=== PATIENT | female | born 1945 | race Caucasian/White ===

== ENCOUNTER → 2016-05-27 | Outpatient (CLI) | payer MEDICARE, OTHER ==
[~2016-05-27] MED LIST: CALC-342 PO; CHOL100027 PO; CRS10 PO; CYAN10005 PO; DMD20 PO; EPGI40M SC; ESCI10TA17 PO; GLGKIT INJ; LEVO75TA PO; METO1TAB69 PO; MULT-506 PO; MUPI1CRE TOP; NTRGSL/4 SL; NVLGI SQ; OMEP40CA41 PO; OXYC1TAB3 PO; PROB1CAP41 PO; RIVA1TAB4 PO; TOPI50TA16 PO; TRAM-10 PO; XNX25 PO; [UNRECOGNIZED DRUG - CODE] OPB
[2016-05-27 09:46] LABS: CALCIUM 9.5 mg/dl (8.5-10.1)
[2016-05-27 09:47] LABS: ESTIMATED AVERAGE GLUCOSE 177 mg/dl; HA1C FLAG Normal (Normal)
[2016-05-27 10:00] LABS: THYROID STIMULATING HORMONE 1.21 uIu/ml (0.300-4.500)
--- NOTE | 2016-06-04 05:38 | CODING QUERY MEDICAL NECESSITY ---
SUPPORTING DIAGNOSIS NEEDED A supporting diagnosis is required for the test/procedure performed on this patient in order for us to be reimbursed by the patient's insurance. Please provide a supporting diagnosis for the following test/procedure listed below next to the test name along with your signature. *If there is no additional diagnosis for this patient that would support the following test/procedure please document that below next to the test/procedure. Test(s)/Procedure(s) that require a supporting diagnosis: DOS 05/27 * Hba1c DIAGNOSIS: * TSH DIAGNOSIS: Provider Signature: Date: Thank you Morena Leiva Health Information Management Once completed, please kindly fax back to [phone] For questions please call [phone]
== END | disposition home or self-care (01) ==
LOC: C.LAB1850 07:37
PROVIDERS: ATTEND Family Medicine
DX: D63.8 Anemia in other chronic diseases classified elsewhere (principal); N18.4 Chronic kidney disease, stage 4 (severe); E10.9 Type 1 diabetes mellitus without complications; E06.3 Autoimmune thyroiditis

== ENCOUNTER → 2016-08-30 | Outpatient (CLI) | payer MEDICARE ==
[~2016-08-30] MED LIST changes: +METO100T44 PO; -METO1TAB69 PO
== END ==
LOC: C.RDSM 13:45
PROVIDERS: ATTEND Physical Medicine & Rehabilitation Sports Medicine
DX: M25.512 Pain in left shoulder (principal)

== ENCOUNTER → 2016-09-06 | Outpatient (CLI) | payer MEDICARE ==
[~2016-09-06] MED LIST changes: -METO100T44 PO; +METO1TAB69 PO
[2016-09-06 09:37] LABS: BASO % 0.5 %; BASO ABS # 0.03 K/uL (0-0.2); COMPLETE YES; HEMATOCRIT 34.1 % (37-47); LYMPH % 27.7 %; LYMPH ABS # 1.66 K/uL (1.2-3.4); MEAN CELL VOLUME 93.7 fL (80-100); MEAN CORPUSCULAR HEMOGLOBIN 29.4 pg (25-34); MEAN CORPUSCULAR HGB CONC 31.4 g/dl (32-36); MEAN PLATELET VOLUME 11.8 fL (7.4-10.4); MONO % 7.3 %; NEUT % 59.5 %; PLATELET COUNT 217 K/uL (130-400); RED BLOOD COUNT 3.64 M/uL (4.2-5.4)
[2016-09-06 09:50] LABS: ALT/SGPT 18 U/L (12-78); AST/SGOT 18 U/L (15-37); BLOOD UREA NITROGEN 44 mg/dl (7-18); BUN/CREATININE RATIO 16.9 (10-20); CALCIUM 10.4 mg/dl (8.5-10.1); CARBON DIOXIDE 32 mmol/L (21-32); CHLORIDE 104 mmol/L (98-107); CHOLESTEROL 124 mg/dl (0-200); GLUCOSE 99 mg/dl (70-99); POTASSIUM 4.1 mmol/L (3.5-5.1); SODIUM 141 mmol/L (136-145); TRIGLYCERIDES 64 mg/dl (0-150); VERY LOW DENSITY LIPOPROT CALC 13 mg/dl
[2016-09-06 09:53] LABS: CHOLESTEROL/HDL RATIO 2.4; HDL CHOLESTEROL 52 mg/dl; LDL CHOLESTEROL CALCULATED 59 mg/dl; PHOSPHORUS 3.6 mg/dl (2.5-4.9)
[2016-09-06 11:41] LABS: ESTIMATED AVERAGE GLUCOSE 197 mg/dl; HA1C FLAG Normal (Normal)
[2016-09-06 12:08] LABS: URINE APPEARANCE CLOUDY (CLEAR); URINE BILIRUBIN NEG (NEG); URINE COLOR YELLOW; URINE NITRITE NEG (NEG); URINE SPECIFIC GRAVITY 1.017 (1.000-1.030); UROBILINOGEN NEG (NEG)
[2016-09-06 12:21] LABS: MANUAL MICROSCOPIC REQUIRED? NO; REVIEW REQ? NO
[2016-09-06 12:43] LABS: RATIO 15.4 mcg/mg (0-30.0)
== END | disposition home or self-care (01) ==
LOC: C.LAB1850 07:23
PROVIDERS: ATTEND Internal Medicine Endocrinology, Diabetes & Metabolism
DX: E78.5 Hyperlipidemia, unspecified (principal); E21.2 Other hyperparathyroidism; M85.80 Other specified disorders of bone density and structure, unspecified site; D63.8 Anemia in other chronic diseases classified elsewhere; N18.4 Chronic kidney disease, stage 4 (severe); E10.22 Type 1 diabetes mellitus with diabetic chronic kidney disease

== ENCOUNTER → 2016-09-17 | Outpatient (CLI) | payer MEDICARE ==
--- NOTE | 2016-09-17 08:24 | DIAGNOSTIC IMAGING REPORT ---
THYROID ULTRASOUND HISTORY: Thyroid nodules E04.2 Multiple thyroid nodules COMPARISON: 10/03/2015 FINDINGS: Right lobe: Maximum linear dimension 5.3 cm. Echogenic nodularity of the right thyroid is essentially unchanged given differences in scan technique. Maximum dimension is 1.5 cm. Cystic density lower pole right thyroid is unchanged at 1.9 cm maximum linear dimension. Left lobe: Uniform in appearance with a maximum dimension 2.2 cm. Isthmus: No nodules. IMPRESSION: 1. Asymmetric thyroid with stable nodularity/cystic change of the right thyroid lobe. 2. The right thyroid lobe remains moderately larger as compared to the left with this differential unchanged from the prior study 3. No evidence for new interval or progressive nodular process. Electronically signed by: Tristan Hutchinson M.D. 09/17/2016 8:22 AM Dictated Date/Time: 09/17/2016 8:18 AM
== END | disposition home or self-care (01) ==
LOC: C.ULTR 07:37
PROVIDERS: ATTEND Internal Medicine Endocrinology, Diabetes & Metabolism
DX: E04.2 Nontoxic multinodular goiter (principal)

== ENCOUNTER → 2016-11-06 | Outpatient (CLI) | payer MEDICARE ==
--- NOTE | 2016-11-06 12:06 | DIAGNOSTIC IMAGING REPORT ---
LEFT LOWER EXTREMITY VENOUS DOPPLER HISTORY: Left leg SWELLING/PAIN, R/O DVT COMPARISON STUDY: None. FINDINGS: There is normal compressibility, flow, and augmentation within the left lower extremity deep venous system. A 7.3 x 4.9 x 1.4 cm slightly complex popliteal cyst. IMPRESSION: No DVT within the left lower extremity. Slightly complex left popliteal cyst. Electronically signed by: Rowdy Hernandez M.D. 11/06/2016 12:04 PM Dictated Date/Time: 11/06/2016 12:03 PM
== END | disposition home or self-care (01) ==
LOC: C.ULTRBC 10:55
PROVIDERS: ATTEND Dermatology
DX: M79.662 Pain in left lower leg (principal); M71.22 Synovial cyst of popliteal space [Baker], left knee

== ENCOUNTER → 2016-11-29 | Outpatient (CLI) | payer MEDICARE ==
[2016-11-29 09:59] LABS: HEMATOCRIT 37.8 % (37-47); MEAN CELL VOLUME 97.4 fL (80-100); MEAN CORPUSCULAR HEMOGLOBIN 31.2 pg (25-34); MEAN PLATELET VOLUME 10.8 fL (7.4-10.4); PLATELET COUNT 231 K/uL (130-400); RED BLOOD COUNT 3.88 M/uL (4.2-5.4); WHITE BLOOD COUNT 6.46 K/uL (4.8-10.8)
[2016-11-29 10:26] LABS: BLOOD UREA NITROGEN 33 mg/dl (7-18); CARBON DIOXIDE 30 mmol/L (21-32); CHLORIDE 103 mmol/L (98-107); POTASSIUM 4.2 mmol/L (3.5-5.1); SODIUM 139 mmol/L (136-145)
== END | disposition home or self-care (01) ==
LOC: C.LAB1850 09:01
PROVIDERS: ATTEND Physical Medicine & Rehabilitation Sports Medicine
DX: Z01.812 Encounter for preprocedural laboratory examination (principal); M65.30 Trigger finger, unspecified finger; G56.02 Carpal tunnel syndrome, left upper limb

== ENCOUNTER → 2016-12-02 | Outpatient (CLI) | payer MEDICARE ==
--- NOTE | 2016-12-02 14:23 | DIAGNOSTIC IMAGING REPORT ---
L KNEE 1 OR 2 VIEWS ROUTINE CLINICAL HISTORY: 71 years-old Female presenting with M25.562 Chronic pain of left kneeM79.662 Pain and swelling of leg. TECHNIQUE: Frontal and lateral views of the left knee were obtained. COMPARISON: 11/16/2009. FINDINGS: No acute fracture or subluxation. No gross evidence of a knee joint effusion. No degenerative change. Atherosclerosis noted. Suggestion of diffuse subcutaneous edema in the visualized portion of the left leg. IMPRESSION: No significant osseous abnormality. Electronically signed by: Murray Bowman M.D. 12/02/2016 2:22 PM Dictated Date/Time: 12/02/2016 2:20 PM
== END | disposition home or self-care (01) ==
LOC: C.RAD 13:57
PROVIDERS: ATTEND Neuromusculoskeletal Medicine & OMM
DX: M25.562 Pain in left knee (principal); M79.662 Pain in left lower leg; M79.89 Other specified soft tissue disorders

== ENCOUNTER → 2016-12-09 | Outpatient (CLI) | payer MEDICARE ==
[2016-12-09 10:58] LABS: BASO % 0.3 %; BASO ABS # 0.02 K/uL (0-0.2); COMPLETE YES; HEMATOCRIT 39.8 % (37-47); IG% 0.2 %; MEAN CELL VOLUME 98.5 fL (80-100); MEAN CORPUSCULAR HEMOGLOBIN 30.4 pg (25-34); MEAN CORPUSCULAR HGB CONC 30.9 g/dl (32-36); MEAN PLATELET VOLUME 11.6 fL (7.4-10.4); MONO % 7.4 %; NEUT % 68.1 %; PLATELET COUNT 212 K/uL (130-400); RED BLOOD COUNT 4.04 M/uL (4.2-5.4); WHITE BLOOD COUNT 5.78 K/uL (4.8-10.8)
[2016-12-09 11:25] LABS: BLOOD UREA NITROGEN 41 mg/dl (7-18); BUN/CREATININE RATIO 15.1 (10-20); CALCIUM 9.3 mg/dl (8.5-10.1); CARBON DIOXIDE 32 mmol/L (21-32); CHLORIDE 99 mmol/L (98-107); GLUCOSE 300 mg/dl (70-99); POTASSIUM 4.4 mmol/L (3.5-5.1); SODIUM 137 mmol/L (136-145)
[2016-12-09 11:26] LABS: PHOSPHORUS 3.6 mg/dl (2.5-4.9)
[2016-12-09 11:41] LABS: RATIO 18.3 mcg/mg (0-30.0)
== END | disposition home or self-care (01) ==
LOC: C.LAB1850 09:13
PROVIDERS: ATTEND Internal Medicine
DX: M85.80 Other specified disorders of bone density and structure, unspecified site (principal); E10.9 Type 1 diabetes mellitus without complications; E78.5 Hyperlipidemia, unspecified

== ENCOUNTER → 2016-12-12 | Day surgery (SDC) | payer MEDICARE ==
[2016-11-26 07:31] VITALS: Ht 172.1 cm; Wt 72.7 kg
--- NOTE | 2016-12-10 12:12 | History and Physical ---
History & Physical Date & Time of Service: Dec 10, 2016 at 11:43 Chief Complaint: Left Long Finger Trigger Digit, Left Carpal Tunnel Primary Care Physician: Kareem Almaguer III, CRNP History of Present Illness Source: patient Patient is a 71-year-old female who certainly for preoperative history and physical. She scheduled to have the left open carpal tunnel release and left long finger trigger digit release with Dr. Smith at [facility] On December 12, 2016. She has been having ongoing left long finger trigger digit for the last 18 months or so. She previously had a corticosteroid injection and it but it continues to cause her pain. She does occasionally get locking and it although it has not been locking clinically in our office. There is a palpable nodule. Back in August she also complained of some weakness and occasional numbness and tingling in her left hand. She is left-hand dominant. She states that her symptoms are present during the day but worse at night. She also has some pain at the separate thumb. An EMG and nerve conduction study was completed which shows severe left carpal tunnel syndrome with axonal loss. Due to her progressively worsening symptoms and EMG findings surgical intervention was recommended. Treatment options with regards to her carpal tunnel were discussed which included injections, bracing, therapy , and surgery. She wished to proceed with surgery. During that procedure she would also like to get her trigger digit released as well to continues to be painful. Past Medical/Surgical History 1. History of heart attack in October 2000 2. Atherosclerotic cardiovascular disease 3. Dyslipidemia 4. Insulin-dependent diabetes 5. Factor V Leiden mutation 6. Hypothyroidism 7. Stage IV chronic kidney disease with anemia of chronic disease 8. Hypertension 9. Carpal tunnel syndrome left hand 10. Long finger trigger digit left hand 11. Sleep apnea 12. Anxiety 13. History of blood clots 14. Osteoarthritis 15. History of sciatica 16. GERD 17. 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 Past surgical history: 1.Amputation of 6 toes total beginning in 2013 2. Cataract surgery 3. Laser treatment for her eyes 4. Multiple Skin lesions excised 5. Left hammertoe correction 6. Hemorrhoidectomy 7. Hysterectomy 8. ORIF of right knee 9. Parathyroidectomy 10. Right knee arthroscopy 11. History of right groin Starclose filter 12. Tonsillectomy Family History Family history: Significant for stroke, diabetes, and cancer. Social History Smoking Status: Former Smoker (Quit in June 2015. Smoked one pack per day for 45 years) Alcohol Use: none Drug Use: none Marital Status: Housing status: lives with significant other Immunizations History of Influenza Vaccine: Yes Influenza Vaccine Date: Dec 29, 2006 History of Tetanus Vaccine?: Yes Tetanus Immunization Date: Jun 29, 2007 History of Pneumococcal: Yes Pneumococcal Date: Jun 29, 2002 History of Hepatitis B Vaccine: No Multi-Drug Resistant Organisms History of MDRO: No Allergies Coded Allergies: Acetaminophen (Verified Allergy, Unknown, PROTECT HER KIDNEYS, 11/26/16) NSAIDs (Unverified Allergy, Unknown, AVOID TO PROTECT KIDNEYS, 11/26/16) Atorvastatin (Verified Adverse Reaction, Intermediate, MUSCLE PAIN, ) Corticosteroids (Verified Adverse Reaction, Intermediate, DUE TO INCREASED BLOOD SUGAR, 11/26/16) Simvastatin (Verified Adverse Reaction, Intermediate, MUSCLE PAIN, 11/26/16 ) Home Medications Scheduled Alprazolam (Xanax *), 0.25 MG PO BID Calcium Carbonate-Vitamin D (Calcium 600+D), 1 TAB PO QAM Cholecalciferol (Vitamin D 1000 Unit), 1,000 INTER.UNIT PO QAM Cyanocobalamin (Vitamin B-12), 1,000 MCG PO QAM Escitalopram (Lexapro), 10 MG PO QPM Glucagon (Glucagon Emergency Kit), 1 DOSE INJ PRN Insulin Aspart (Novolog), 1 SQ UD Levothyroxine Sodium (Synthroid), 75 MCG PO UD Loteprednol Etabonate 0.2% Oph (Alrex 0.2% OPH), 1 DROP OPB BID Metoprolol Succ (Toprol Xl) (Toprol-Xl ), 100 MG PO QAM Multivitamin (Multivitamin), 1 TAB PO QAM Mupirocin Calcium (Topical) (Mupirocin), 1 DOSE TOP HS Nitroglycerin (Nitrostat), 1 TAB SL PRN Omeprazole (Prilosec), 40 MG PO QAM Probiotic Product (Probiotic Daily), 1 CAP PO QAM Rivaroxaban (Xarelto), 20 MG PO QAM Rosuvastatin Calcium (Crestor *), 10 MG PO QPM Topiramate (Topamax), 50 MG PO BID Scheduled PRN Epoetin Jose Miguel (Procrit), 40,000 UNIT SC WEEKLY PRN for PRN Torsemide (Torsemide), 20 MG PO BID PRN for PRN Tramadol (Ultram), 50 MG PO Q6H PRN for Pain Review of Systems Constitutional: No fever, No chills, No sweats, No weight loss Eyes: No worsening of vision, No redness ENT: No hearing loss, No unusual epistaxis, No nasal symptoms, No sore throat, No tinnitus Respiratory: No cough, No sputum, No wheezing, No shortness of breath, No dyspnea on exertion Cardiovascular: No chest pain, No orthopnea, No edema, No claudication, No palpitations Abdomen: No pain, No nausea, No vomiting, No diarrhea, No constipation Musculoskeletal: + joint pain (Left thumb, left hand), No swelling Genitourinary - Female: No urinary frequency, No urinary urgency, No urinary incontinence, No urinary retention Neurologic: + numbness/tingling (Left hand), No memory loss, No balance problems Psychiatric: + anxiety, No depression symptoms, No substance abuse Endocrine: No fatigue Hematologic / Lymphatic: + abnormal bleeding/bruising, + clotting problems Integumentary: + new/changing skin lesions (Recent squamous cell carcinoma excised from left leg. Incision healing nicely), No rash, No itch Physical Exam General Appearance: WD/WN, no apparent distress Head: normocephalic, atraumatic Eyes: normal inspection, PERRL, EOMI ENT: normal ENT inspection, hearing grossly normal, pharynx normal Neck: supple, thyroid normal, no carotid bruits, trachea midline Respiratory/Chest: chest non-tender, lungs clear, normal breath sounds, no respiratory distress, no accessory muscle use Cardiovascular: regular rate, rhythm, no edema, normal peripheral pulses, + systolic murmur ([place] best at right sternal border) Abdomen/GI: normal bowel sounds, non tender, soft Extremities/Musculoskelatal: normal range of motion, + pertinent finding (Exam of the left hand reveals tenderness at the CMC joint with a positive grind test. She has mild thumb abduction contracture. There is no tenderness at the MP joint of thumb. She is tenderness over most of her long finger and over the MP joint volarly of all of her fingers most notably the long finger. She has full range of motion of her left hand and fingers. There is no active triggering, a palpable nodule is palpated with some mild clicking. Sensation diminished in all of her fingers and she reports a negative Tinel's and Phalen' s maneuver.) Neurologic/Psych: alert, normal mood/affect, normal reflexes, oriented x 3 Skin: normal color, warm/dry, no rash Diagnostics Diagnostic Radiology X-rays of left hand were taken 3 views and show no evidence of acute bony abnormality fracture dislocation. It does appear to have CMC joint arthritis of her left thumb. Impression Assessment and Plan Assessment: 1. Left carpal tunnel syndrome 2. Left long finger trigger digit 3. Left CMC joint arthritis Plan: Patient is scheduled to undergo an open left carpal tunnel release and left long trigger finger release with Dr. Smith at the [facility] on December 12, 2016. Risks and complications were discussed and include but not limited to infection, bleeding, pain, scarring, nerve and blood vessel damage, wound problems, weakness, stiffness, incomplete relief of symptoms, sensitivity to incision, persistent numbness and tingling, recurrence , blood clots, embolisms, heart attack, stroke, and . Informed consent was obtained. She will have preoperative medical clearance from her family physician Dr. Maikel Barkley. She was instructed to use the CHG cloths appropriately preoperatively. She will follow up in physical therapy 4-5 days after surgery. She will also follow-up with Dr. Smith postoperatively about 10-14 days postoperatively for suture removal. She is given a prescription for oxycodone IR 30 tablets 1-2 tabs every 4-6 hours as needed for pain. The [place] PDMP was checked with no issues identified. She will have preadmission testing and was she will obtain preoperative CBC and BMP. Her EKG will be obtained from her family physician. Her family physician recommended that she take Lovenox 60 mg on Friday and Friday prior to surgery. She will take nothing the day of surgery on December 12, 2016 and will resume her Xarelto appropriately postoperatively. All questions were answered today and she does call with any further problems, questions, or concerns.
[~2016-12-12] VITALS: Ht 172.1 cm; Wt 72.7 kg
[~2016-12-12] MED LIST changes: +ATROPINE SULFATE 0.1 MG/ML 5ML SYR IV PRN; +BUPIVACAINE/EPINEPHRINE 0.25% 1:200,000 30 ML VIAL ONE; +BUPIVACAINE/EPINEPHRINE 0.5% MPF 1:200,000 10 ML VIAL ONE; +CEFAZOLIN 2000 MG/60 ML D5W IV SCH; +EpHEDrine SULFATE INJ 50 MG/ML AMP IV PRN; +FENTANYL CITRATE INJ 50 MCG/1 ML 2 ML VIAL IV PRN; +FENTANYL CITRATE INJ 50 MCG/1 ML 2 ML VIAL ONE; +LACTATED RINGER'S 1000ML 1,000 ML IV SCH; +LIDOCAINE HCL 2% 2 ML VIAL (20MG/ML) ONE; +LIDOCAINE/EPINEPHRINE 1% INJ 50 ML VIAL ONE; +MIDAZOLAM HCL 1 MG/ML 2ML VIAL ONE; +ONDANSETRON INJ 2 MG/ML 2 ML VIAL IV PRN; +OXYCODONE HCL IR 5 MG TAB (IMMEDIATE RELEASE) PO PRN; +PROPOFOL IV EMULSION 10 MG/ML 20 ML VIAL IV ONE; +SODIUM CHLORIDE 0.9% 1000ML 1,000 ML IV SCH
--- NOTE | 2016-12-12 08:12 | History & Physical Bridge Note ---
H&P Re-Evaluation Bridge Note: I have examined the patient, reviewed the History & Physical and in the interval since the performance of the History & Physical I have noted the following changes of clinical significance: No changes noted
[2016-12-12 09:10] VITALS: TEMP 36.6
--- NOTE | 2016-12-12 09:11 | Anesthesia Progress Nt - [facility] ---
Anesthesia Post Op Note Date & Time Dec 12, 2016 at 09:11 Vital Signs Pain Intensity: 0 Vital Signs Past 12 Hours Date Time Temp Pulse Resp B/P (MAP) Pulse Ox O2 Delivery O2 Flow Rate FiO2 12/12/16 07:40 36.5 54 16 125/73 (90) 95 Room Air Notes Mental Status: alert / awake / arousable, participated in evaluation Pt Amnestic to Procedure: Yes Nausea / Vomiting: adequately controlled Pain: adequately controlled Airway Patency, RR, SpO2: stable & adequate BP & HR: stable & adequate Hydration State: stable & adequate Anesthetic Complications: no major complications apparent
--- NOTE | 2016-12-12 09:18 | Discharge Instructions-SurgCtr ---
Discharge Instructions Date of Service Dec 12, 2016. Visit Reason for Visit: Left Long Finger Trigger Digit, Left Carpal Tunnel Discharge Discharge Diagnosis / Problem: left long finger trigger digit, carpal tunnel syndrome left hand Discharge Goals Goal(s): Decrease discomfort, Improve function, Increase independence Medications Stopped Medications Name(s): Xarelto, last dose 12/09/16 Restart Stopped Medication(s): Resume Xarelto tomorrow at your regular dose Activity Recommendations Activity Limitations: per Instructions/Follow-up section Weightbearing Status: Left non-weightbearing (hand) Anesthesia . Post Anesthesia Instructions: If you have had General Anesthesia or IV Sedation: * Do not drive today. * Resume driving when surgeon permits. * Do not make important decisions or sign legal documents today. * Call surgeon for: 1. Temperature elevations greater than 101 degrees F. 2. Uncontrollable pain. 3. Excessive bleeding. 4. Persistent nausea and vomiting. 5. Medication intolerance (nausea, vomiting or rash). * For nausea and vomiting use only clear liquids such as: tea, soda, bouillon until nausea subsides, then gradually increase diet as tolerated. * If you have any concerns or questions, call your surgeon's office. If physician is unavailable and it is an emergency, call 911 or go to the nearest emergency room. . Instructions / Follow-Up Instructions / Follow-Up The following are instructions to follow after minor hand surgery. ACTIVITY RECOMMENDATIONS: * Minimize activity until your first visit after surgery. * No excessive walking, jogging, sports or laboring. * Return to activity is individualized. Most patients are able to return to everyday activities within 2 weeks. * Return to sports or intensive labor usually occurs at 1-2 months. * DRIVING: Driving may be resumed when you feel you have adequate pain control and use of the hand. * BATHING: You may shower or sponge-bathe immediately after surgery. The dressing will need to be covered with a plastic bag or plastic wrap until the dressing is changed on the fourth or fifth day after surgery. Once the dressing has been changed on the fourth or fifth day after surgery, you may shower and get the incision wet. * Wash with regular soap and water. * Do not bathe (submerge the incision), soak, swim or use a hot tub until the incision is completely healed over with normal skin and the doctor has given the OK to proceed. * There is no need to apply any ointments, powders or salves to your incision. * Do not apply alcohol or hydrogen peroxide directly to the incision. Diluted peroxide (50:50 mixture with sterile saline) may be used to clean dried blood from around the incision area. WORK/SCHOOL: * You may return to sedentary work or school when you are feeling comfortable. This is usually 3-7 days after surgery. * Expect increased discomfort with increased activity. Continue to elevate and ice the hand as much as possible. DIET: * Resume previous diet. MEDICATIONS: * You will have a prescription for pain medication and an anti-inflammatory medication after surgery. Use the pain pills for severe pain and the anti-inflammatory for less severe pain. * Once the pain pills have run out, try to use the anti-inflammatory. If this is not effective then contact the office for assistance. * The pain medication may cause nausea, constipation and sleepiness. You should see how they affect you before driving or similar activity. * The anti-inflammatory may cause stomach upset and bleeding. If this occurs, let your doctor know immediately . * Some patients may need blood clot prevention. This can be done with either a pill or a simple shot. Your doctor will advise you on when to begin these medications and how to take them. * Do not take aspirin or other anti-inflammatory products (i.e. Advil or Aleve ) if taking blood thinner medication. * Take a stool softener like Colace or a stimulant like Senokot to prevent constipation. SPECIAL CARE INSTRUCTIONS: ICE: * Do not apply ice directly to the skin. * Use a thin dressing or stockinet between the skin and ice bag. The dressing in place after surgery will suffice. * Apply ice for 20-30 minutes and repeat every 2-4 hours. This is especially important for the first 3-7 days after surgery. * Once the pain improves, use ice as needed. ELEVATION: * Keep your hand elevated at or above the level of your heart as much as possible. * Expect some increased discomfort and swelling if you allow your hand to hang down for any length of time. DRESSING: * Your dressing will be changed 4-5 days after surgery by the physical therapist or physician's equity sales assistant. Leave your dressing intact until this time. * You may then change your dressing daily with clean dry gauze or Band-aids and a soft wrap or stockinet. * Always wash your hands prior to touching the incision area. * Once the stitches are removed, you may leave the wound open to air or cover with a thin bandage. * There is no need to apply any ointments, powders or salves to your incision. * Expect some bloody drainage for the first few days after surgery. * Leave the tape strips in place (if present) for 5-7 days. * The initial dressing after surgery may become soaked with blood or fluid which is normal. You may reinforce your dressing with clean, dry gauze as needed. BRACE: * Bracing is generally not needed after routine hand surgery. THERAPY: * Physical therapy may be prescribed after your surgery. * For carpal tunnel and trigger digit surgery you may begin moving your fingers and wrist immediately after surgery as tolerated. * Be careful to not overuse. * Once the sutures are removed, further range of motion exercises can be performed. * Hand incisions may be very sensitive for a few months after surgery so avoid excessive pressure on the incision. If necessary, use a padded weightlifters' glove. * You may massage the incision with skin cream to make it less sensitive and reduce scarring. * Hand strength usually returns with normal use. * If needed, squeezing a soft sponge or Play-dough may help. * Your doctor will recommend physical therapy if necessary. PROBLEMS/QUESTIONS: * If you have any problems such as severe pain, numbness, tingling or high fevers or if you have any questions, please contact the office at [phone]. * It is not uncommon to have some numbness and tingling after the surgery especially if you have had a nerve block done. This should gradually improve over the first 1- 2 days. If this persists longer or worsens then contact the office. FOLLOW UP VISIT: * If not already scheduled, please call the office at to schedule follow-up appointments for approximately 10 days, 6 weeks and 3 months after surgery. * You will start physical therapy on 12/16/16 at 10:00 a.m. * You have a follow up appointment with Dr. Smith on 12/25/16 at 12:00 p.m. Diet Recommendations Home Diet: no limitations, resume previous diet Procedures Procedures Performed: Left Long Finger Trigger Release, Left Carpal Tunnel Release Pending Studies Studies pending at discharge: no Medical Emergencies . Who to Call and When: Medical Emergencies: If at any time you feel your situation is an emergency, please call 911 immediately. . Non-Emergent Contact Non-Emergency issues call your: Surgeon Call Non-Emergent contact if: temperature is above 101, your pain is not controlled, your pain is worsening, wound has increased drainage, wound has increased redness, wound has increased pain, you have any medication questions . . "Provider Documentation" section prepared by lAina Bruce. . [place] Drug Monitoring Program Search Results: patient reviewed within database, no issues identified
--- NOTE | 2016-12-12 09:19 | [facility] Post Operative Brief Note ---
Immediate Operative Summary Operative Date Dec 12, 2016. Pre-Operative Diagnosis Left carpal tunnel syndrome Left long finger trigger finger digit Post-Operative Diagnosis Same as pre-op Procedure(s) Performed Left Long Finger Trigger Release, Left Carpal Tunnel Release Surgeon Dr. Sosa Assistant Shift Supervisor Surgeon(s) Michelet MOISE Estimated Blood Loss None Findings as above Specimens None Drains no Anesthesia local with IV sedation Complication(s) None Disposition Recovery Room / PACU
--- NOTE | 2016-12-12 09:21 | [facility] Operative Report ---
Operative Report Operative Date Dec 12, 2016. Pre-Operative Diagnosis Left carpal tunnel syndrome Left long finger trigger finger digit Post-Operative Diagnosis Same as pre-op Procedure(s) Performed Left Long Finger Trigger Release, Left Carpal Tunnel Release Surgeon Dr. Sosa Motor Hotel Manager Surgeon(s) Alina Bruce PA-C Estimated Blood Loss None Findings left long finger trigger digit release, CTS left hand Specimens None Drains None Anesthesia Local with sedation Complication(s) None Disposition Recovery Room / PACU (stable) Indications Patient is a 71 year old female, with complaints of pain in left long finger with occasional locking, paresthesias left hand. Progressively worsening, failed conservative treatment. X-rays negative except for left CMC joint arthritis. Surgical intervention recommended. Risks/complications discussed, informed consent obtained. Description of Procedure Patient was taken to the operating room, given IV Ancef for surgical prophylaxis. Given IV sedation and local injections. Time out performed, prepped and draped in routine sterile fashion. I was present during the entire case, please see Dr. Smith's operative report for further detail. Patient was awakened and taken to the recovery room in stable condition. I attest to the content of the Intraoperative Record and any orders documented therein. Any exceptions are noted below.
[2016-12-12 09:35] VITALS: BP 177/80; PULSE 56; O2SAT 98
--- NOTE | 2016-12-12 11:56 | [facility] Operative Report ---
Operative Report Operative Date Dec 12, 2016. Pre-Operative Diagnosis Left carpal tunnel syndrome Left long finger trigger finger digit Post-Operative Diagnosis Same as pre-op Procedure(s) Performed Left Long Finger Trigger Release, Left Carpal Tunnel Release Surgeon Dr. Sosa Fashion Coordinator Surgeon(s) Alina Bruce PA-C Estimated Blood Loss None Findings Thickening of the A1 dieter. Markedly thickened and deep carpal ligament with an atrophied median nerve Specimens None Drains none Anesthesia local with IV sedation Complication(s) None Disposition Recovery Room / PACU Implants None Indications Patient's a 71-year-old female with a symptomatic left long finger trigger digit and severe carpal tunnel syndrome. She is also a diabetic. Treatment options were discussed and she elected to proceed with operative intervention. Description of Procedure Informed consent was obtained. The patient was identified as Nakia Barkley. She identified the operative site as the left hand carpal tunnel and long finger trigger digit area and I marked these areas separately with my initials a preoperative surgical timeout was performed. Preoperative dose of IV antibiotics was given. She was taken to the operating room positioned supine on the hospital stretcher the left arm was suspended on a hand table. A tourniquet was applied to the left arm the limb was prepped and draped in usual sterile fashion DVT prophylaxis was not indicated intraoperatively. Postoperatively they will be done with early mobility. She will also resume her anticoagulant the morning following surgery. Her oral anticoagulant has been discontinued. She is been on Lovenox injections daily. Her last injection was 24 hours preoperatively. He had an adduction contracture of her thumb and atrophy of the thenar eminence. I could not get her finger to trigger although she did have a palpable nodule the level of the A1 dieter. Percent lidocaine with epinephrine was injected for a carpal tunnel and digital block. The arm was prepped and draped in usual sterile fashion. I made an oblique incision over the long finger of A1 dieter. The incision was about 1-1/2 cm in length and was centralized over the involved digit. Blunt dissection was performed down in the midline until the flexor sheath was identified. The entrance to the dieter system was identified by markedly thickened A1 dieter. I released the fascial tissue proximally in the midline and released the A1 dieter completely. The tendons looked normal there was some inflammation around that area but no cysts. The wound was then irrigated and closed with 4-0 nylon horizontal mattress stitches. Prior to start of the procedure the wound the limb was exsanguinated with the Esmarch and tourniquet inflated to 225 mmHg. A longitudinal incision was made beginning at Gambino's cardinal line and extending just short of the distal transverse wrist crease. Blunt dissection was performed down to subcutaneous tissues until transverse carpal ligament was identified. The fat at the distal extent of the and transverse carpal ligament was identified. A thickened and markedly deep transverse carpal ligament was noted this was carefully released up into the distal forearm fascia under direct visualization. The contents of the carpal canal were normal. The tendons and tenosynovium. There is no mass. A flattening and perhaps atrophying of the median nerve was noted. The wound was irrigated and closed with 4-0 nylon interrupted horizontal mattress stitches. A soft sterile dressing was applied. The was deflated after approximately 20 minutes of inflation. There were no specimens or call locations counts are correct in the case blood loss was minimal. At the conclusion operations both patient's family informed of my findings and postoperative instructions were given. She'll be rehabilitated according to the carpal tunnel and trigger digit protocol. I attest to the content of the Intraoperative Record and any orders documented therein. Any exceptions are noted below.
== END | disposition home or self-care (01) ==
LOC: X.SURG 07:24
PROVIDERS: ATTEND Physical Medicine & Rehabilitation Sports Medicine
DX: M65.332 Trigger finger, left middle finger (principal); G56.02 Carpal tunnel syndrome, left upper limb; I25.10 Atherosclerotic heart disease of native coronary artery without angina pectoris; I12.9 Hypertensive chronic kidney disease with stage 1 through stage 4 chronic kidney disease, or unspecified chronic kidney disease; E10.9 Type 1 diabetes mellitus without complications; D68.51 Activated protein C resistance; E78.5 Hyperlipidemia, unspecified; E03.9 Hypothyroidism, unspecified; N18.4 Chronic kidney disease, stage 4 (severe); Z87.891 Personal history of nicotine dependence; Z79.899 Other long term (current) drug therapy; Z79.4 Long term (current) use of insulin; Z98.49 Cataract extraction status, unspecified eye; Z98.890 Other specified postprocedural states; Z90.710 Acquired absence of both cervix and uterus; Z90.89 Acquired absence of other organs; Z82.3 Family history of stroke; Z83.3 Family history of diabetes mellitus; Z80.9 Family history of malignant neoplasm, unspecified

== ENCOUNTER → 2017-01-27 | Outpatient (CLI) | payer MEDICARE ==
[~2017-01-27] MED LIST changes: -ATROPINE SULFATE 0.1 MG/ML 5ML SYR IV PRN; -BUPIVACAINE/EPINEPHRINE 0.25% 1:200,000 30 ML VIAL ONE; -BUPIVACAINE/EPINEPHRINE 0.5% MPF 1:200,000 10 ML VIAL ONE; -CEFAZOLIN 2000 MG/60 ML D5W IV SCH; -EpHEDrine SULFATE INJ 50 MG/ML AMP IV PRN; -FENTANYL CITRATE INJ 50 MCG/1 ML 2 ML VIAL IV PRN; -FENTANYL CITRATE INJ 50 MCG/1 ML 2 ML VIAL ONE; -LACTATED RINGER'S 1000ML 1,000 ML IV SCH; -LIDOCAINE HCL 2% 2 ML VIAL (20MG/ML) ONE; -LIDOCAINE/EPINEPHRINE 1% INJ 50 ML VIAL ONE; +METO100T44 PO; -METO1TAB69 PO; -MIDAZOLAM HCL 1 MG/ML 2ML VIAL ONE; -ONDANSETRON INJ 2 MG/ML 2 ML VIAL IV PRN; -OXYCODONE HCL IR 5 MG TAB (IMMEDIATE RELEASE) PO PRN; -PROPOFOL IV EMULSION 10 MG/ML 20 ML VIAL IV ONE; -SODIUM CHLORIDE 0.9% 1000ML 1,000 ML IV SCH
[2017-01-27 10:37] LABS: HEMATOCRIT 36.6 % (37-47)
[2017-01-27 11:04] LABS: BLOOD UREA NITROGEN 23 mg/dl (7-18); BUN/CREATININE RATIO 9.8 (10-20); CALCIUM 9.4 mg/dl (8.5-10.1); CARBON DIOXIDE 26 mmol/L (21-32); CHLORIDE 101 mmol/L (98-107); CREATININE 2.39 mg/dl (0.60-1.20); GLUCOSE 234 mg/dl (70-99); POTASSIUM 4.1 mmol/L (3.5-5.1); SODIUM 136 mmol/L (136-145)
[2017-01-27 16:20] LABS: MANUAL MICROSCOPIC REQUIRED? YES; URINE APPEARANCE CLEAR (CLEAR); URINE BILIRUBIN NEG (NEG); URINE COLOR YELLOW; URINE NITRITE NEG (NEG); URINE PH 6.5 (4.5-7.5); UROBILINOGEN NEG (NEG)
[2017-01-27 16:38] LABS: REVIEW REQ? NO
[2017-01-27 16:58] LABS: URINE WBC >30 /hpf (0-5)
[2017-01-27 16:59] LABS: URINE BACTERIA 1+ (NEG); ZZUR CULT IF INDIC CLEAN CATCH YES
== END | disposition home or self-care (01) ==
LOC: C.LAB1850 10:02
PROVIDERS: ATTEND Internal Medicine
DX: N18.4 Chronic kidney disease, stage 4 (severe) (principal); D63.8 Anemia in other chronic diseases classified elsewhere

== ENCOUNTER → 2017-02-11 | Outpatient (CLI) | payer OTHER ==
--- NOTE | 2017-02-12 07:35 | MAMMOGRAPHY REPORT ---
BILATERAL DIGITAL SCREENING MAMMOGRAM WITH CAD: 02/11/2017 CLINICAL HISTORY: Routine screening. Patient has no complaints. TECHNIQUE: Bilateral CC and MLO views were obtained. Current study was also evaluated with a Compute r Aided Detection (CAD) system. COMPARISON: Comparison is made to exams dated: 02/06/2016 mammogram, 02/01/2015 mammogram, 12/15/2013 mammogram, 12/09/2012 mammogram, 12/03/2011 mammogram, and 11/22/2010 mammogram - [facility]. BREAST COMPOSITION: The tissue of both breasts is heterogeneously dense, which may obscure small mas ses. FINDINGS: There are mild vascular calcifications in the breasts. Benign rim calcification in the lef t breast. No suspicious mass, architectural distortion or cluster of suspicious microcalcifications is seen. IMPRESSION: ACR BI-RADS CATEGORY 1: NEGATIVE There is no mammographic evidence of malignancy. A 1 year screening mammogram is recommended. The pa tient will receive written notification of the results. Approximately 10% of breast cancers are not detected with mammography. A negative mammographic report should not delay biopsy if a clinically suggestive mass is present. Liat Ordaz M.D. ay/:02/11/2017 15:56:54 Ladle Builder: Lesly CERVANTES,R, M, [facility] letter sent: Normal 1/2 BI-RADS Code: ACR BI-RADS Category 1: Negative
== END | disposition home or self-care (01) ==
LOC: C.MAMM 07:46
PROVIDERS: ATTEND Neuromusculoskeletal Medicine & OMM
DX: Z12.31 Encounter for screening mammogram for malignant neoplasm of breast (principal)

== ENCOUNTER → 2017-03-19 | Outpatient (CLI) | payer MEDICARE ==
[2017-03-19 10:09] LABS: HEMATOCRIT 36.9 % (37-47); HEMOGLOBIN 11.3 g/dL (12.0-16.0)
[2017-03-19 10:16] LABS: CALCIUM 10.1 mg/dl (8.5-10.1)
== END | disposition home or self-care (01) ==
LOC: C.LAB1850 09:05
PROVIDERS: ATTEND Internal Medicine Endocrinology, Diabetes & Metabolism
DX: N18.4 Chronic kidney disease, stage 4 (severe) (principal); D63.8 Anemia in other chronic diseases classified elsewhere; E03.9 Hypothyroidism, unspecified; E78.5 Hyperlipidemia, unspecified; E21.2 Other hyperparathyroidism; M85.80 Other specified disorders of bone density and structure, unspecified site; E10.65 Type 1 diabetes mellitus with hyperglycemia

== ENCOUNTER → 2017-03-20 | Outpatient (CLI) | payer MEDICARE ==
[2017-03-20 10:04] LABS: BASO ABS # 0.06 K/uL (0-0.2); EOS % 4.6 %; EOS ABS # 0.29 K/uL (0-0.5); HEMATOCRIT 34.8 % (37-47); HEMOGLOBIN 10.7 g/dL (12.0-16.0); IG# 0.01 K/uL (0.00-0.02); LYMPH % 19.9 %; LYMPH ABS # 1.25 K/uL (1.2-3.4); MEAN CELL VOLUME 95.9 fL (80-100); MEAN CORPUSCULAR HEMOGLOBIN 29.5 pg (25-34); MEAN CORPUSCULAR HGB CONC 30.7 g/dl (32-36); MONO % 6.5 %; MONO ABS # 0.41 K/uL (0.11-0.59); NEUT % 67.8 %; NEUT ABS # 4.25 K/uL (1.4-6.5); PLATELET COUNT 234 K/uL (130-400); RED CELL DISTRIBUTION WIDTH CV 16.5 % (11.5-14.5); RED CELL DISTRIBUTION WIDTH SD 58.2 fL (36.4-46.3); WHITE BLOOD COUNT 6.27 K/uL (4.8-10.8)
== END | disposition home or self-care (01) ==
LOC: C.LAB1850 09:29
PROVIDERS: ATTEND Nurse Practitioner Adult Health
DX: R05 Cough (principal)

== ENCOUNTER → 2017-03-20 | Outpatient (CLI) | payer MEDICARE ==
--- NOTE | 2017-03-20 10:34 | DIAGNOSTIC IMAGING REPORT ---
CHEST 2 VIEWS ROUTINE CLINICAL HISTORY: [id number] COMPARISON STUDY: 08/25/2015, June 2014 FINDINGS: The cardiac and mediastinal contours are normal. There is no evidence of focal pulmonary consolidation. There is no evidence of failure. No pleural effusions are visualized.[ Indistinctness of the lower left cardiac border, is likely secondary to a fat pad. This remains unchanged from June 2014 IMPRESSION: No active disease in the chest. Electronically signed by: Mariusz Love M.D. 03/20/2017 10:33 AM Dictated Date/Time: 03/20/2017 10:32 AM
== END | disposition home or self-care (01) ==
LOC: C.RAD 09:51
PROVIDERS: ATTEND Nurse Practitioner Adult Health
DX: R05 Cough (principal)

== ENCOUNTER → 2017-04-29 | Outpatient (CLI) | payer MEDICARE ==
--- NOTE | 2017-04-29 08:57 | DIAGNOSTIC IMAGING REPORT ---
CT OF THE HEAD WITHOUT CONTRAST CLINICAL HISTORY: Depression. Dizziness. COMPARISON STUDY: No previous studies for comparison. CT DOSE: 614.27 mGy.cm TECHNIQUE: Helical axial images of the head were obtained without IV contrast. Automated exposure control was utilized for the study. A dose lowering technique was utilized adhering to the principles of ALARA. FINDINGS: Note is made of a 1.5 cm hyperdense focus within the right frontal lobe. This has no mass effect. There is no adjacent edema. Ventricular system is unremarkable for age. Basilar cisterns are patent. There are no extra-axial collections. White matter hypodensities suggest moderate small vessel disease. There are no findings to suggest acute dural sinus thrombosis or acute territorial infarct. There are no significant calvarial abnormalities. Visualized portions of the sinuses and mastoid air cells are clear. IMPRESSION: 1.5 cm hyperdense focus within the right frontal lobe without mass effect or associated edema. The appearance favors a cavernoma. However, acute hemorrhage or a hyperdense mass could appear similar. An MRI of the brain with and without contrast is recommended for further evaluation. Electronically signed by: David Foster M.D. 04/29/2017 8:56 AM Dictated Date/Time: 04/29/2017 8:48 AM
== END | disposition home or self-care (01) ==
LOC: C.CTS 08:32
PROVIDERS: ATTEND Neuromusculoskeletal Medicine & OMM
DX: F32.9 Major depressive disorder, single episode, unspecified (principal); R42 Dizziness and giddiness

== ENCOUNTER → 2017-04-30 | Outpatient (CLI) | payer MEDICARE ==
[2017-04-30 12:32] LABS: BLOOD UREA NITROGEN 28 mg/dl (7-18); CREATININE 2.78 mg/dl (0.60-1.20)
== END | disposition home or self-care (01) ==
LOC: C.LAB1850 09:45
PROVIDERS: ATTEND Neuromusculoskeletal Medicine & OMM
DX: E10.21 Type 1 diabetes mellitus with diabetic nephropathy (principal); E10.42 Type 1 diabetes mellitus with diabetic polyneuropathy; E78.5 Hyperlipidemia, unspecified

== ENCOUNTER → 2017-05-02 | Outpatient (CLI) | payer MEDICARE ==
--- NOTE | 2017-05-02 19:34 | DIAGNOSTIC IMAGING REPORT ---
MRI OF THE BRAIN WITHOUT CONTRAST CLINICAL HISTORY: G93.9 Right frontal lobe lesion COMPARISON STUDY: Noncontrast head CT dated 04/29/2017 FINDINGS: Sagittal T1, axial diffusion, axial T2, coronal FLAIR, and axial T1-weighted images were acquired. No contrast was administered due to the patient's significantly reduced GFR.. Within the right frontal lobe, corresponding to the hyperdense focus described on the recent CT scan, there is a 15 mm mixed signal lesion containing hemosiderin indicative of an old hemorrhage. The findings are most consistent with a cavernoma or other lesion which has previously hemorrhaged. There is no midline shift. Axial diffusion-weighted images reveal no evidence of acute or subacute infarction. There is no evidence of ventricular dilatation. Proton density T2-weighted and FLAIR images reveal moderate foci of increased T2 signal within the white matter, likely on a small vessel basis. There are no abnormal flow voids. IMPRESSION: 1. 15 mm right frontal lesion. This demonstrates hemosiderin, and is consistent with an area of prior hemorrhage. Given the CT appearance, this likely represents a cavernoma or other lesion which has previously hemorrhaged. If the patient is clinically stable, six-month follow-up imaging is recommended 2. No evidence of acute or subacute infarction 3. Moderate foci of increased T2 signal within the white matter likely on a small vessel basis Electronically signed by: Mariusz Love M.D. 05/02/2017 7:33 PM Dictated Date/Time: 05/02/2017 7:22 PM
== END | disposition home or self-care (01) ==
LOC: C.MRI 18:36
PROVIDERS: ATTEND Neuromusculoskeletal Medicine & OMM
DX: G93.89 Other specified disorders of brain (principal)

== ENCOUNTER → 2017-05-06 | Outpatient (CLI) | payer MEDICARE | END | disposition home or self-care (01) | LOC: C.PATHSPEC 15:14 | PROVIDERS: ATTEND Dentist Oral and Maxillofacial Surgery | DX: D10.2 Benign neoplasm of floor of mouth (principal) ==

== ENCOUNTER → 2017-05-19 | Outpatient (CLI) | payer MEDICARE ==
[2017-05-19 10:16] LABS: HEMATOCRIT 41.2 % (37-47); HEMOGLOBIN 12.4 g/dL (12.0-16.0)
== END | disposition home or self-care (01) ==
LOC: C.LAB1850 09:01
PROVIDERS: ATTEND Internal Medicine
DX: D63.8 Anemia in other chronic diseases classified elsewhere (principal); N18.4 Chronic kidney disease, stage 4 (severe)

== ENCOUNTER → 2017-06-16 | Outpatient (CLI) | payer MEDICARE ==
[~2017-06-16] MED LIST changes: -OXYC1TAB3 PO
== END | disposition home or self-care (01) ==
LOC: C.RDSM 16:20
PROVIDERS: ATTEND Physical Medicine & Rehabilitation Sports Medicine
DX: M25.562 Pain in left knee (principal)

== ENCOUNTER 2017-06-26 09:36 | Observation (INO) | payer MEDICARE ==
[~2017-06-26] VITALS: Ht 170.2 cm; Wt 72.1 kg
[2017-06-26] MEDS ORDERED: DEXTROSE 50% 50 ML SYR IV STA (11:35)
[2017-06-26 11:58] LABS: HEMATOCRIT 34.7 % (37-47); HEMOGLOBIN 11.1 g/dL (12.0-16.0); MEAN CELL VOLUME 92.3 fL (80-100); MEAN CORPUSCULAR HEMOGLOBIN 29.5 pg (25-34); MEAN PLATELET VOLUME 12.1 fL (7.4-10.4); PLATELET COUNT 232 K/uL (130-400); RED CELL DISTRIBUTION WIDTH CV 16.7 % (11.5-14.5); RED CELL DISTRIBUTION WIDTH SD 56.5 fL (36.4-46.3); WHITE BLOOD COUNT 6.67 K/uL (4.8-10.8)
[2017-06-26 11:59] LABS: ALBUMIN 3.1 gm/dl (3.4-5.0); ALT/SGPT 18 U/L (12-78); AST/SGOT 15 U/L (15-37); BLOOD UREA NITROGEN 36 mg/dl (7-18); CALCIUM 11.2 mg/dl (8.5-10.1); CARBON DIOXIDE 31 mmol/L (21-32); CREATININE 2.38 mg/dl (0.60-1.20); GLUCOSE 71 mg/dl (70-99); POTASSIUM 3.3 mmol/L (3.5-5.1); SODIUM 139 mmol/L (136-145)
[2017-06-26 12:02] LABS: ALKALINE PHOSPHATASE 75 U/L (45-117); TOTAL PROTEIN 6.7 gm/dl (6.4-8.2)
[2017-06-26] MEDS ORDERED: NON-FORMULARY MEDICATION (Glucagon (Glucagon Emergency Kit) 1 DOSE) INJ PRN (12:15)
[2017-06-26] MEDS ORDERED: TRAMADOL HCL 50 MG TAB PO PRN (12:15)
[2017-06-26] MEDS ORDERED: TORSEMIDE 20 MG TAB PO PRN (12:15)
[2017-06-26 12:26] LABS: BASO % 0.1 %; BASO ABS # 0.01 K/uL (0-0.2); EOS % 3.6 %; EOS ABS # 0.24 K/uL (0-0.5); IG# 0.01 K/uL (0.00-0.02); LYMPH % 23.1 %; LYMPH ABS # 1.54 K/uL (1.2-3.4); MONO % 4.8 %; MONO ABS # 0.32 K/uL (0.11-0.59); NEUT % 68.3 %; NEUT ABS # 4.55 K/uL (1.4-6.5)
[2017-06-26] MEDS ORDERED: MoRPHine SULFATE 2 MG/ML CARP IV PRN (12:30)
[2017-06-26] MEDS ORDERED: ONDANSETRON INJ 2 MG/ML 2 ML VIAL IV PRN (12:30)
[2017-06-26] MEDS ORDERED: MAGNESIUM HYDROXIDE SUSP 30 ML UDC PO PRN (12:30)
[2017-06-26] MEDS ORDERED: POLYETHYLENE (MIRALAX) 17 GM PACK PO PRN (12:30)
[2017-06-26] MEDS ORDERED: NITROGLYCERIN 0.4 MG SL PER TAB CHARGE SL PRN (12:30)
[2017-06-26] MEDS ORDERED: ALUMINUM/MAGNESIUM/SIMETH (MAALOX MAX) 30 ML UDC PO PRN (12:30)
--- NOTE | 2017-06-26 12:44 | History and Physical ---
History & Physical Date & Time of Service: Jun 26, 2017 at 12:28 Chief Complaint: Accidently Took 120-140 Units Of Insulin,Knee Pain Primary Care Physician: Ricky Barkley D.O. History of Present Illness Source: patient 72 y/o F Hx CAD, DM II, CKD IV, PAD, HTN, HPL, ROGELIO, factor V mutation - PE/DVT. Presents following an accidental overdose of insulin. She believes she administered 150 U of Novolog. She monitored her blood glucose at home initially and states that her POC went down to 34. She became lightheaded at that point and presented to the ER. The pt normally uses an insulin pump and had meant to put 150 U into her reservoir. She ended up administering it directly but does not recall how. The pt states that she has had excessive ain in her L knee due to arthritis. 2 weeks ago she received a Cortisone injection which did not help. She has been taking Tramadol BID and Alprazolam BID as well which may have contributed to her confusion. Past Medical/Surgical History 1. 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 2. CAD - history of CA 10/2000 3. Dyslipidemia 4. Insulin-dependent diabetes 5. Factor V Leiden mutation 6. Hypothyroidism 7. CKD IV 8. Hypertension 9. Sciatica 10. GERD 11. ROGELIO 12. 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 Osteoarthritis Past surgical history: 1. Amputation of 6 toes total beginning in 2013 2. Cataract surgery 3. Laser treatment for her eyes 4. Multiple Skin lesions excised 5. Left hammertoe correction 6. Hemorrhoidectomy 7. Hysterectomy 8. ORIF of right knee 9. Parathyroidectomy 10. Right knee arthroscopy 11. History of right groin Starclose filter 12. Tonsillectomy Family History No pertinent family history Significant for CVA, diabetes, and cancer. Social History Smoking Status: Former Smoker Drug Use: none Marital Status: Housing status: lives with significant other Immunizations History of Influenza Vaccine: Yes Influenza Vaccine Date: Dec 29, 2006 History of Tetanus Vaccine?: Yes Tetanus Immunization Date: Jun 29, 2007 History of Pneumococcal: Yes Pneumococcal Date: Jun 29, 2002 History of Hepatitis B Vaccine: No Allergies Coded Allergies: Acetaminophen (Verified Allergy, Unknown, PROTECT HER KIDNEYS, 06/26/17) NSAIDs (Unverified Allergy, Unknown, AVOID TO PROTECT KIDNEYS, 06/26/17) Atorvastatin (Verified Adverse Reaction, Intermediate, MUSCLE PAIN, ) Corticosteroids (Verified Adverse Reaction, Intermediate, DUE TO INCREASED BLOOD SUGAR, 06/26/17) Simvastatin (Verified Adverse Reaction, Intermediate, MUSCLE PAIN, 06/26/17 ) Home Medications Scheduled Alprazolam (Xanax *), 0.25 MG PO BID Calcium Carbonate-Vitamin D (Calcium 600+D), 1 TAB PO QAM Cholecalciferol (Vitamin D 1000 Unit), 1,000 INTER.UNIT PO QAM Cyanocobalamin (Vitamin B-12), 1,000 MCG PO QAM Escitalopram (Lexapro), 10 MG PO QPM Glucagon (Glucagon Emergency Kit), 1 DOSE INJ PRN Insulin Aspart (Novolog), 1 SQ UD Levothyroxine Sodium (Synthroid), 75 MCG PO UD Loteprednol Etabonate 0.2% Oph (Alrex 0.2% OPH), 1 DROP OPB BID Metoprolol Succ (Toprol Xl) (Toprol-Xl ), 100 MG PO QAM Multivitamin (Multivitamin), 1 TAB PO QAM Mupirocin Calcium (Topical) (Mupirocin), 1 DOSE TOP HS Nitroglycerin (Nitrostat), 1 TAB SL PRN Omeprazole (Prilosec), 40 MG PO QAM Probiotic Product (Probiotic Daily), 1 CAP PO QAM Rivaroxaban (Xarelto), 20 MG PO QAM Rosuvastatin Calcium (Crestor *), 10 MG PO QPM Topiramate (Topamax), 50 MG PO BID Scheduled PRN Epoetin Jose Miguel (Procrit), 40,000 UNIT SC WEEKLY PRN for PRN Torsemide (Torsemide), 20 MG PO BID PRN for PRN Tramadol (Ultram), 50 MG PO Q6H PRN for Pain Review of Systems Constitutional: No fever, No chills, No sweats Eyes: No worsening of vision ENT: No hearing loss, No unusual epistaxis, No nasal symptoms Respiratory: No cough, No wheezing Cardiovascular: No chest pain, No orthopnea, No PND Abdomen: No pain, No vomiting Musculoskeletal: No joint pain, No muscle pain Genitourinary - Female: No dysuria Neurologic: + problem reported (Lightheaded during hypoglycemic episode), No memory loss, No paralysis, No weakness Psychiatric: No depression symptoms Endocrine: No fatigue Hematologic / Lymphatic: No abnormal bleeding/bruising Integumentary: No rash Physical Exam Vital Signs Date Time Temp Pulse Resp B/P (MAP) Pulse Ox O2 Delivery O2 Flow Rate FiO2 06/26/17 11:47 59 06/26/17 11:40 58 12 160/70 100 Room Air 06/26/17 09:43 36.6 96 20 99/61 99 Room Air General Appearance: WD/WN, no apparent distress Head: normocephalic Eyes: normal inspection ENT: normal ENT inspection, pharynx normal Neck: supple Respiratory/Chest: chest non-tender, lungs clear Cardiovascular: regular rate, rhythm, no edema, no gallop Abdomen/GI: normal bowel sounds, non tender, soft Back: normal inspection, no CVA tenderness Extremities/Musculoskelatal: normal inspection, no calf tenderness Neurologic/Psych: parimutuel cashier II-XII nml as tested, no motor/sensory deficits, alert, oriented x 3 Skin: normal color Diagnostics Laboratory Results Results Past 24 Hours Test 06/26/17 10:13 Range/Units White Blood Count 6.67 4.8-10.8 K/uL Red Blood Count 3.76 4.2-5.4 M/uL Hemoglobin 11.1 12.0-16.0 g/dL Hematocrit 34.7 37-47 % Mean Corpuscular Volume 92.3 80-100 fL Mean Corpuscular Hemoglobin 29.5 25-34 pg Mean Corpuscular Hemoglobin Concent 32.0 32-36 g/dl Platelet Count 232 130-400 K/uL Mean Platelet Volume 12.1 7.4-10.4 fL Neutrophils (%) (Auto) 68.3 % Lymphocytes (%) (Auto) 23.1 % Monocytes (%) (Auto) 4.8 % Eosinophils (%) (Auto) 3.6 % Basophils (%) (Auto) 0.1 % Neutrophils # (Auto) 4.55 1.4-6.5 K/uL Lymphocytes # (Auto) 1.54 1.2-3.4 K/uL Monocytes # (Auto) 0.32 0.11-0.59 K/uL Eosinophils # (Auto) 0.24 0-0.5 K/uL Basophils # (Auto) 0.01 0-0.2 K/uL RDW Standard Deviation 56.5 36.4-46.3 fL RDW Coefficient of Variation 16.7 11.5-14.5 % Immature Granulocyte % (Auto) 0.1 % Immature Granulocyte # (Auto) 0.01 0.00-0.02 K/uL Sodium Level 139 136-145 mmol/L Potassium Level 3.3 3.5-5.1 mmol/L Chloride Level 104 98-107 mmol/L Carbon Dioxide Level 31 21-32 mmol/L Anion Gap 4.0 3-11 mmol/L Blood Urea Nitrogen 36 7-18 mg/dl Creatinine 2.38 0.60-1.20 mg/dl Estimated GFR () 22.8 Estimated GFR (Non- 19.7 BUN/Creatinine Ratio 15.1 10-20 Random Glucose 71 70-99 mg/dl Calcium Level 11.2 8.5-10.1 mg/dl Total Bilirubin 0.3 0.2-1 mg/dl Direct Bilirubin 0.1 0-0.2 mg/dl Aspartate Amino Transf (AST/SGOT) 15 15-37 U/L Alanine Aminotransferase (ALT/SGPT) 18 12-78 U/L Alkaline Phosphatase 75 45-117 U/L Total Protein 6.7 6.4-8.2 gm/dl Albumin 3.1 3.4-5.0 gm/dl Impression Assessment and Plan 72 y/o F Hx CAD, DM II, CKD IV, PAD, HTN, HPL, ROGELIO, factor V mutation - PE/DVT. Presents following an accidental overdose of insulin. She believes she administered 150 U of Novolog. She monitored her blood glucose at home initially and states that her POC went down to 34. She became lightheaded at that point and presented to the ER. The pt normally uses an insulin pump and had meant to put 150 U into her reservoir. She ended up administering it directly but does not recall how. The pt states that she has had excessive ain in her L knee due to arthritis. 2 weeks ago she received a Cortisone injection which did not help. She has been taking Tramadol BID and Alprazolam BID as well which may have contributed to her confusion. 1) Hypoglycemia - Placed on D10NS - POC to be checked Q1H - D50 and Glucagon provided PRN - assigned to telemetry. It can take up to 18 hours for serum normalization although the half life of Novolog is closer to 8. She is likely admitted overnight therefore. Her insulin pump is disabled at present. 2) CAD - cont Bblocker, Statin - has an ASA sensitivity 3) History of DVT/PE - cont Xarelto 4) HPL - cont Crestor 5) CKD - creatinine is at baseline Full code - Xarelto prophylaxis - total time for this admit including review of labs, meds, records - discussion with pt and ER attending - 35 min She has requested DC later this afternoon or finn - we can consider this based on her Glu trend Resuscitation Status VTE Prophylaxis Will order VTE Prophylaxis: Yes
[2017-06-26 12:49] VITALS: O2SAT 96
[2017-06-26] MEDS ORDERED: GLUCAGON FOR INJ 1 MG VIAL ONE (13:18)
[2017-06-26] MEDS ORDERED: GLUCOSE 10 TABS/TUBE PO PRN (13:30)
[2017-06-26] MEDS ORDERED: DEXTROSE 50% 50 ML SYR IV PRN (13:30)
[2017-06-26] MEDS ORDERED: GLUCOSE 40% GEL 15 GM TUBE PO PRN (13:30)
[2017-06-26] MEDS ORDERED: GLUCAGON FOR INJ 1 MG VIAL SQ PRN (13:30)
[2017-06-26 13:53] VITALS: BP 145/83; PULSE 64; TEMP 36.7; O2SAT 91
[2017-06-26] MEDS ORDERED: HEPARIN SOD 5000 UNIT/0.5 ML CARP SQ SCH (14:00)
[2017-06-26] MEDS ORDERED: PATIENT'S HEIGHT AND/OR WEIGHT NEEDED SCH (14:45)
[2017-06-26] MEDS ORDERED: IV FLUIDS COMPLETED PRN (14:45)
[2017-06-26] MEDS ORDERED: SODI CHLOR 2.5MEQ/ML 14.6% INJ 155 MEQ in DEXTROSE 10% 1,000 ML IV SCH (15:00)
[2017-06-26] MEDS: DEXTROSE 50% 50 ML SYR IV PRN ×4 (15:23→18:47)
[2017-06-26 15:33] VITALS: BP 120/59; PULSE 60; TEMP 36.8; O2SAT 93
--- NOTE | 2017-06-26 18:29 | EMERGENCY ROOM VISIT NOTE ---
History Report prepared by Edvin: Jane Ames Under the Supervision of: Dr. Cj Szymanski M.D. First contact with patient: 09:50 Chief Complaint: OVERDOSE (ACCIDENTAL) Stated Complaint: ACCIDENTLY TOOK 120-140 UNITS OF INSULIN,KNEE PAIN History of Present Illness The patient is a 72 year old female who presents to the Emergency Room with complaints of an accidental overdose of insulin occurring shortly prior to arrival. The patient states that she thinks that while she was changing her insulin pump that she got the new insulin into her body that was supposed to go into the reservoir of the pump. The patient reports that she is having problems with her left knee that has been causing her severe pain which sometimes causes problems with her memory. She gets very flustered when she has pain and this is what happened this morning in the bathroom. She states that this has been going on for a week and a half. She reports that her orthopedic doctor scheduled her for her MRI. She did see her orthopedic doctor twice this week and had a steroid injection earlier in the week. The patient states that she feels fine and does not feel like her sugar is dropping, as she drank two 12 oz of Aron D. She denies having nausea, vomiting, and fevers. She also denies feeling numb or weak in the extremities, and denies problems with her speech. She denies any strokelike symptoms. Per nursing staff, the patient thinks that she primed the tube of insulin without disconnecting the pump from herself which is why she believes that she may have injected herself. Source of History: patient, nursing staff Onset: shortly prior to arrival Position: other (global) Quality: other (insulin overdose ) Timing: constant Associated Symptoms: No fevers, No nausea, No vomiting, No weakness, No numbness Review of Systems See HPI for pertinent positives & negatives. A total of 10 systems reviewed and were otherwise negative. Past Medical & Surgical Medical Problems: (1) Diabetes (2) Hypoglycemia associated with diabetes (3) Insulin overdose Family History No pertinent family history Social History Smoking Status: Former Smoker Drug Use: none Marital Status: Current/Historical Medications Scheduled Alprazolam (Xanax *), 0.25 MG PO BID Calcium Carbonate-Vitamin D (Calcium 600+D), 1 TAB PO QAM Cholecalciferol (Vitamin D 1000 Unit), 1,000 INTER.UNIT PO QAM Cyanocobalamin (Vitamin B-12), 1,000 MCG PO QAM Escitalopram (Lexapro), 10 MG PO QPM Glucagon (Glucagon Emergency Kit), 1 DOSE INJ PRN Insulin Aspart (Novolog), 1 SQ UD Levothyroxine Sodium (Synthroid), 75 MCG PO UD Loteprednol Etabonate 0.2% Oph (Alrex 0.2% OPH), 1 DROP OPB BID Metoprolol Succ (Toprol Xl) (Toprol-Xl ), 100 MG PO QAM Multivitamin (Multivitamin), 1 TAB PO QAM Mupirocin Calcium (Topical) (Mupirocin), 1 DOSE TOP HS Nitroglycerin (Nitrostat), 1 TAB SL PRN Omeprazole (Prilosec), 40 MG PO QAM Probiotic Product (Probiotic Daily), 1 CAP PO QAM Rivaroxaban (Xarelto), 20 MG PO QAM Rosuvastatin Calcium (Crestor *), 10 MG PO QPM Topiramate (Topamax), 50 MG PO BID Scheduled PRN Epoetin Jose Miguel (Procrit), 40,000 UNIT SC WEEKLY PRN for PRN Torsemide (Torsemide), 20 MG PO BID PRN for PRN Tramadol (Ultram), 50 MG PO Q6H PRN for Pain Allergies Coded Allergies: Acetaminophen (Verified Allergy, Unknown, PROTECT HER KIDNEYS, 06/26/17) NSAIDs (Unverified Allergy, Unknown, AVOID TO PROTECT KIDNEYS, 06/26/17) Atorvastatin (Verified Adverse Reaction, Intermediate, MUSCLE PAIN, ) Corticosteroids (Verified Adverse Reaction, Intermediate, DUE TO INCREASED BLOOD SUGAR, 06/26/17) Simvastatin (Verified Adverse Reaction, Intermediate, MUSCLE PAIN, 06/26/17 ) Physical Exam Vital Signs Date Time Temp Pulse Resp B/P (MAP) Pulse Ox O2 Delivery O2 Flow Rate FiO2 06/26/17 11:47 59 06/26/17 11:40 58 12 160/70 100 Room Air 06/26/17 09:43 36.6 96 20 99/61 99 Room Air Physical Exam Constitutional: Vital signs reviewed. Eyes: Pupils are equal round reactive to light. Conjunctiva are noninjected. ENT: Pharynx is clear without erythema or exudate. Mucous membranes are moist. Neck supple without meningeal signs. Respiratory: Clear to auscultation bilaterally. Breath sounds are equal bilaterally. Cardiovascular: Regular rate and rhythm. No rubs or gallops. GI: Soft, nondistended and nontender. Bowel sounds are present. Musculoskeletal: Mild tenderness to the medial joint line of the left knee without swelling or erythema. Full range of motion. Integumentary: No cyanosis. Neurological: The patient is awake and alert. Cranial nerves II-XII are intact. Motor is 5 out of 5 all extremities. Sensation is intact to light touch all extremities. Normal speech. No pronator drift. Psychiatric: Very anxious. Medical Decision & Procedures Laboratory Results 06/26/17 10:13 Red Blood Count 3.76, Mean Corpuscular Volume 92.3, Mean Corpuscular Hemoglobin 29.5, Mean Corpuscular Hemoglobin Concent 32.0, Mean Platelet Volume 12.1, Neutrophils (%) (Auto) 68.3, Lymphocytes (%) (Auto) 23.1, Monocytes (%) (Auto) 4.8, Eosinophils (%) (Auto) 3.6, Basophils (%) (Auto) 0.1, Neutrophils # (Auto) 4.55, Lymphocytes # (Auto) 1.54, Monocytes # (Auto) 0.32, Eosinophils # (Auto) 0.24, Basophils # (Auto) 0.01 06/26/17 10:13 Test 06/26/17 10:13 White Blood Count 6.67 K/uL (4.8-10.8) Red Blood Count 3.76 M/uL (4.2-5.4) Hemoglobin 11.1 g/dL (12.0-16.0) Hematocrit 34.7 % (37-47) Mean Corpuscular Volume 92.3 fL (80-100) Mean Corpuscular Hemoglobin 29.5 pg (25-34) Mean Corpuscular Hemoglobin Concent 32.0 g/dl (32-36) Platelet Count 232 K/uL (130-400) Mean Platelet Volume 12.1 fL (7.4-10.4) Neutrophils (%) (Auto) 68.3 % Lymphocytes (%) (Auto) 23.1 % Monocytes (%) (Auto) 4.8 % Eosinophils (%) (Auto) 3.6 % Basophils (%) (Auto) 0.1 % Neutrophils # (Auto) 4.55 K/uL (1.4-6.5) Lymphocytes # (Auto) 1.54 K/uL (1.2-3.4) Monocytes # (Auto) 0.32 K/uL (0.11-0.59) Eosinophils # (Auto) 0.24 K/uL (0-0.5) Basophils # (Auto) 0.01 K/uL (0-0.2) RDW Standard Deviation 56.5 fL (36.4-46.3) RDW Coefficient of Variation 16.7 % (11.5-14.5) Immature Granulocyte % (Auto) 0.1 % Immature Granulocyte # (Auto) 0.01 K/uL (0.00-0.02) Anion Gap 4.0 mmol/L (3-11) Estimated GFR () 22.8 Estimated GFR (Non- 19.7 BUN/Creatinine Ratio 15.1 (10-20) Calcium Level 11.2 mg/dl (8.5-10.1) Total Bilirubin 0.3 mg/dl (0.2-1) Direct Bilirubin 0.1 mg/dl (0-0.2) Aspartate Amino Transf (AST/SGOT) 15 U/L (15-37) Alanine Aminotransferase (ALT/SGPT) 18 U/L (12-78) Alkaline Phosphatase 75 U/L (45-117) Total Protein 6.7 gm/dl (6.4-8.2) Albumin 3.1 gm/dl (3.4-5.0) Laboratory results as reviewed by me. Medications Administered Medications (Trade) Dose Ordered Sig/Torrie Route Start Time Stop Time Status Last Admin Dose Admin Dextrose (Dextrose 50% 50ML Syringe) 50 ml NOW STAT IV 06/26/17 11:35 06/26/17 11:37 DC 06/26/17 11:40 50 ML Dextrose (Dextrose 50% 50ML Syringe) 50 ml PRN PRN IV 06/26/17 12:15 07/26/17 12:14 06/26/17 17:23 50 ML ED Course 0952: The patient was evaluated in room A9B. A complete history and physical exam was performed. 1045: I reassessed the patient. Her brought in all of the equipment from the pump. It looks like the pump was cut from the injection sight and she said that this was the first thing she did and that the old insulin reservoir is still there. Her feels that it is very unlikely that she actually injected herself. The patient's insulin is Novalog. 1135: Ordered Dextrose 50 ml IV. 1142: I checked on the patient and she said that she is feeling light-headed right now. 1144: I spoke with Dr. Mayberry of [facility]. We discussed the patient. The patient will be further evaluated by Dr. Mayberry. Medical Decision This is a 70-year-old female who presents with a possible insulin overdose. I did perform a limited focused review of portions of the patient's old chart on the electronic medical record. The patient has had no recent pertinent visits to this hospital. I did evaluate the patient as noted above. The patient was not sure if she overdosed herself on insulin. She was changing the reservoir on her insulin pump. She states that she thinks she disconnected herself from the pump before priming it as that is usually the first thing she does. She has no symptoms currently of hypoglycemia. She does state that she drank 2 bottles of Aron D. Her initial blood sugar was 101. We waited for her to come back with the equipment to see if she actually may have overdosed. In the meantime, IV access was established. When her arrived he showed me the equipment. He felt that the patient likely did not overdose given what we saw there. She is asymptomatic but I did recommend watching her further for repeat blood sugar. Repeat blood sugar unfortunately was in the 30s. The patient was given D50 IV. She was given a food tray.. I did order and review the patient's blood work as noted in the electronic medical record. She does have chronic kidney disease and anemia. Her potassium is slightly low. She will be hospitalized for further glucose checks and therapy as needed. I did discuss case with the hospitalist and assistant case manager. Medication Reconcilliation Current Medication List: was personally reviewed by me Blood Pressure Screening Patient's blood pressure: Low blood pressure Consults Time Called: 1138 [facility] Returned Call: [address] Mayberry of [facility]. We discussed the patient. The patient will be further evaluated by Dr. Kedem. Impression Primary Impression: Insulin overdose Additional Impressions: Hypoglycemia Chronic kidney disease Anemia Hypokalemia Left knee pain Scribe Attestation The scribe's documentation has been prepared under my direct and personally reviewed by me in its entirety. I confirm that the note above accurately reflects all work, treatment, procedures, and medical decision making performed by me. Departure Information Dispostion Being Evaluated By Hospitalist Ricky Wade D.O. (PCP) Patient Instructions My [facility] Problem Qualifiers Primary Impression: Insulin overdose Encounter type: initial encounter Injury intent: accidental or unintentional Qualified Codes: T38.3X1A - Poisoning by insulin and oral hypoglycemic [antidiabetic] drugs, accidental (unintentional), initial encounter Additional Impressions: Chronic kidney disease Chronic kidney disease stage: unspecified stage Qualified Codes: N18.9 - Chronic kidney disease, unspecified Anemia Anemia type: unspecified type Qualified Codes: D64.9 - Anemia, unspecified Left knee pain Chronicity: acute Qualified Codes: M25.562 - Pain in left knee
[2017-06-26 19:29] VITALS: BP 119/68; PULSE 61; TEMP 36.7; O2SAT 95
[2017-06-26] MEDS ORDERED: ESCITALOPRAM OXALATE 10 MG TAB PO SCH (21:00)
[2017-06-26] MEDS ORDERED: ROSUVASTATIN CALCIUM 10 MG TAB PO SCH (21:00)
[2017-06-26] MEDS: TOPIRAMATE 50 MG TAB PO SCH (21:38)
[2017-06-26] MEDS: ALPRAZOLAM 0.25 MG TAB PO SCH (21:39)
[2017-06-26 22:42] VITALS: BP 149/78; PULSE 63; TEMP 36.9; O2SAT 93
[2017-06-27] VITALS (8 sets, daily range): BP systolic 116–177; BP diastolic 66–74; PULSE 60–76; TEMP 36.8–37.2; O2SAT 94–99; Ht 170.2 cm; Wt 72.1 kg
[2017-06-27] MEDS ORDERED: INSULIN IV INFUSION PROTOCOL STA (03:40)
[2017-06-27] MEDS ORDERED: MODERATE STRESS LEVEL ONE (03:45)
[2017-06-27] MEDS ORDERED: INSULIN PROTOCOL GOAL RANGE ONE (03:45)
[2017-06-27] MEDS ORDERED: PHARMACY GLYCEMIC MGMT CONSULT PRN (03:51)
[2017-06-27] MEDS ORDERED: INSULIN HUMAN REGULAR IV BOLUS 2 UNIT in SYRINGE 0 ML IV SCH (04:00)
[2017-06-27] MEDS: INSULIN REGULAR 250 UNITS in SODIUM CHLORIDE 0.9% 250ML 250 ML IV SCH ×4 (04:29→14:45)
[2017-06-27] MEDS ORDERED: LEVOTHYROXINE 75 MCG TAB PO SCH (06:30)
[2017-06-27] MEDS: ALPRAZOLAM 0.25 MG TAB PO SCH (07:47)
[2017-06-27] MEDS: TOPIRAMATE 50 MG TAB PO SCH (07:48)
[2017-06-27] MEDS: INSULIN ASPART 100 UNITS/ML 3 ML PEN SC SCH ×2 (08:38→12:50)
[2017-06-27] MEDS ORDERED: RIVAROXABAN 10 MG TAB PO SCH (09:00)
[2017-06-27] MEDS ORDERED: LACTOBACILLUS ACIDOPHILUS (FLORANEX) TAB PO SCH (09:00)
[2017-06-27] MEDS ORDERED: PANTOprazole SOD 40 MG TAB PO SCH (09:00)
[2017-06-27] MEDS ORDERED: METOPROLOL SUCC 50MG EXT REL TAB PO SCH (09:00)
--- NOTE | 2017-06-27 11:49 | Pharmacy Progress Note ---
Pharmacy Glycemic Short Note 2 Date of Service Jun 27, 2017. OUTPATIENT ANTIDIABETIC REGIMEN: * Novolog pump * basal: 6472-0536: 0.475 units/hr 7060-9740: 0.7 units/hr 2287-2151: 0.575 units/hr 1227-1122: 0.8 units/hr * goal range: 120-160 mg/dL * correction factor: 60mg/dL/unit * carb ratio: 1 unit per 15gm CHO consumed * HbA1c: 7.0% (03/19/17) ASSESSMENT: * Ms Barkley is a 72yo Type 1 diabetic who manages her diabetes with a Novolog insulin pump as an outpatient. * Recent A1c indicates reasonable glycemic control. * Patient was admitted yesterday following a suspected accidental insulin overdose while attempting to refill her pump. * Patient believes that she administered 150 units of Novolog to herself accidentally while trying to add 150 units to her pump reservoir. * Pt had prolonged, significant hypoglycemia on admission, requiring much correction with dextrose, glucagon, etc. * Once BSGs recovered, patient was initiated on an IV insulin infusion, which is currently infusing at 2.6units/hr (stable for several hours). * Patient's family has brought in the supplies that she requires to re-attach and resume her insulin pump. * Current gtt rate is significantly higher than basal rates on her pump. PLAN FOR INPATIENT GLYCEMIC CONTROL: * Resume insulin pump prior to discharge. Once insulin pump is ready for use, may need to overlap with insulin infusion for an hour or two. PLAN FOR DISCHARGE: * Recent A1c (7.0%) indicates acceptable glycemic control in a 72yo patient. * Anticipate that patient may be discharged on current home regimen. * If patient reports experiencing hypoglycemic episodes at home, recommend prompt f/u with outpt provider to adjust insulin pump settings.
[2017-06-27] MEDS ORDERED: NovoLOG INSULIN PUMP SCH (14:00)
[2017-06-27] MEDS ORDERED: INSULIN ASPART 100 UNITS/ML VIAL SC PRN (14:15)
--- NOTE | 2017-06-27 14:47 | Discharge Instructions ---
Discharge Instructions Date of Service Jun 27, 2017. Admission Reason for Admission: Hypoglycemia Associated W/Diabetes, In[place] Od Discharge Discharge Diagnosis / Problem: Hypoglycemia, Hyperglycemia, DM type I Discharge Goals Goal(s): Improve function, Improve disease control Activity Recommendations Activity Limitations: resume your previous activity . Instructions / Follow-Up Instructions / Follow-Up Resume prior home medications, no changes made Current Hospital Diet Patient's current hospital diet: Diabetes Type 1 Diet Discharge Diet Recommended Diet: Diabetes Type 1 Diet Pending Studies Studies pending at discharge: no Medical Emergencies . Who to Call and When: Medical Emergencies: If at any time you feel your situation is an emergency, please call 911 immediately. . Non-Emergent Contact Non-Emergency issues call your: Primary Care Provider Call Non-Emergent contact if: you have any medication questions . . "Provider Documentation" section prepared by Ander Corona. . [place] Drug Monitoring Program Search Results: no issues identified
[2017-06-28] MEDS ORDERED: LEVOTHYROXINE 150 MCG TAB PO SCH (06:30)
--- NOTE | 2017-06-28 07:50 | Discharge Summary ---
Discharge Summary Date of Service Jun 27, 2017. Discharge Summary Admission Date: Jun 26, 2017 at 12:24 Discharge Date: Jun 27, 2017 Discharge Disposition: Home Principal Diagnosis: Hypoglycemia due to excess insulin administration Problems/Secondary Diagnoses: DM type I Osteoarthritis of the knee CKD due to diabetic nephropathy h/o DVT Immunizations: Have You Had Influenza Vaccine: Yes Influenza Vaccine Date: Dec 29, 2006 History of Tetanus Vaccine?: Yes Tetanus Immunization Date: Jun 29, 2007 History of Pneumococcal: Yes Pneumococcal Date: Jun 29, 2002 History of Hepatitis B Vaccine: No Procedures: none Consultations: none Medication Reconciliation Continued Medications: Alprazolam (Xanax *) 0.25 Mg Tab 0.25 MG PO BID, 0 Refills Calcium Carbonate-Vitamin D (Calcium 600+D) 1 Tab Tab 1 TAB PO QAM Cholecalciferol (Vitamin D 1000 Unit) 1,000 Unit Cap 1000 INTER.UNIT PO QAM, CAP Cyanocobalamin (Vitamin B-12) 1,000 Mcg Tab 1000 MCG PO QAM, 0 Refills Epoetin Jose Miguel (Procrit) 40 000/ [place]j 14694 UNIT SC WEEKLY PRN for PRN, VIAL HOLD IF HGB GREATER THAN 12 Escitalopram (Lexapro) 10 Mg Tab 10 MG PO QPM, TAB Glucagon (Glucagon Emergency Kit) 1 Mg Kit 1 DOSE INJ PRN Insulin Aspart (Novolog) Inj 1 SQ UD INSULIN PUMP Levothyroxine Sodium (Synthroid) 75 Mcg Tab 75 MCG PO UD, TAB TAKE 1 TABLET DAILY FRIDAY, THROUGH FRIDAY AND 2 TABLETS DAILY ON FRIDAY AND FRIDAY (9 TABLETS WEEKLY) Loteprednol Etabonate 0.2% Oph (Alrex 0.2% OPH) 10 Ml Susp 1 DROP OPB BID, BTL Metoprolol Succ (Toprol Xl) (Toprol-Xl ) 100 Mg Tabcr 100 MG PO QAM, 0 Refills Multivitamin (Multivitamin) Tab 1 TAB PO QAM, 0 Refills Mupirocin Calcium (Topical) (Mupirocin) 2 % Cre 1 DOSE TOP HS Nitroglycerin (Nitrostat) 0.4 Mg Tab 1 TAB SL PRN Omeprazole (Prilosec) 40 Mg Cap 40 MG PO QAM, CAP Probiotic Product (Probiotic Daily) 1 Cap Cap 1 CAP PO QAM Rivaroxaban (Xarelto) 20 Mg Tab 20 MG PO QAM, TAB Rosuvastatin Calcium (Crestor *) 10 Mg Tab 10 MG PO QPM Topiramate (Topamax) 50 Mg Tab 50 MG PO BID Torsemide (Torsemide) 20 Mg Tab 20 MG PO BID PRN for PRN PATIENT STATES SHE TAKE NEEDED Tramadol (Ultram) 50 Mg Tab 50 MG PO Q6H PRN for Pain, #30 TAB Discharge Exam Patient was treated with dextrose infusion, sugars actually tracey to 400 and required insulin drip while insulin pump was still turned off. Glycemic control was managed by pharmacy. Sugars slowly corrected over the course of the morning and afternoon. Patient eating well, no other complaints. She was scheduled to have an MRI of her knee as outpatient next week, requested that it be done while here. Explained that it wasn't appropriate to perform an outpatient test while she was just here on observation, also, it would delay her going home which she wanted to avoid. Sugar was 104 in the late afternoon after turning on insulin pump, she was discharged to home with her . Review of Systems: Constitutional: No fever, No chills, No sweats, No weight loss, No weakness , No fatigue, No problem reported Eyes: No worsening of vision, No eye pain, No redness, No discharge, No diplopia, No problem reported ENT: No hearing loss, No unusual epistaxis, No nasal symptoms, No sore throat, No tinnitus, No dental problems, No trouble swallowing, No problem reported Respiratory: No cough, No sputum, No wheezing, No shortness of breath, No dyspnea on exertion, No dyspnea at rest, No hemoptysis, No problem reported Cardiovascular: No chest pain, No orthopnea, No PND, No edema, No claudication, No palpitations, No problem reported Abdomen: No pain, No nausea, No vomiting, No diarrhea, No constipation, No GI bleeding, No problem reported Musculoskeletal: + joint pain (knee pain), No muscle pain, No swelling, No calf pain Genitourinary - Female: No dysuria, No urinary frequency, No urinary urgency , No urinary incontinence, No urinary retention, No hematuria Neurologic: No memory loss, No paralysis, No weakness, No numbness/tingling , No vertigo, No balance problems, No problem reported Psychiatric: No depression symptoms, No anhedonism, No anxiety, No insomnia , No substance abuse, No problem reported Endocrine: No fatigue, No excessive thirst, No excessive urination, No problem reported Hematologic / Lymphatic: No abnormal bleeding/bruising, No clotting problems , No swollen lymph nodes, No night sweats, No problem reported Integumentary: No rash, No itch, No new/changing skin lesions, No color change, No bleeding, No problem reported Physical Exam: General Appearance: WD/WN, no apparent distress Eyes: normal inspection, EOMI, sclerae normal ENT: normal ENT inspection, hearing grossly normal, pharynx normal Neck: supple, no adenopathy, no JVD, trachea midline Respiratory/Chest: chest non-tender, lungs clear, normal breath sounds, no respiratory distress, no accessory muscle use Cardiovascular: regular rate, rhythm, no edema, no gallop, no JVD, no murmur , normal peripheral pulses Abdomen / GI: normal bowel sounds, non tender, soft, no organomegaly Extremities: normal inspection, no calf tenderness, normal capillary refill , no pedal edema, normal range of motion, pelvis stable Neurologic/Psychiatric: materials associate II-XII nml as tested, no motor/sensory deficits , alert, normal mood/affect, normal reflexes, oriented x 3 Skin: normal color, warm/dry, no rash Hospital Course 1) Hypoglycemia due to accidental overdose of insulin, thinks she gave herself 150 units of novolog treated with D10NS, sugars tracey to 400 treated with insulin infusion, managed by pharmacy sugars slowly returned to 200's, started insulin pump at 1400 sugar 104 at 1500, patient ready to go home 2) CAD - cont Bblocker, Statin - has an ASA sensitivity 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 Discharge Instructions Please refer to the electronic Patient Visit Report (Discharge Instructions) for additional information. Follow-Up Dr. Barkley as needed Additional Copies To Ricky Barkley D.O.
== END 2017-06-27 18:08 | disposition home or self-care (01) ==
LOC: C.EDB 09:38 → C.MED 12:24 → CANRESERV 12:45 → ENRESERV 12:45
PROVIDERS: ADMIT Internal Medicine; ATTEND Internal Medicine
DX: E10.649 Type 1 diabetes mellitus with hypoglycemia without coma (principal); T38.3X1A Poisoning by insulin and oral hypoglycemic [antidiabetic] drugs, accidental (unintentional), initial encounter; E10.21 Type 1 diabetes mellitus with diabetic nephropathy; E87.6 Hypokalemia; E03.9 Hypothyroidism, unspecified; N18.4 Chronic kidney disease, stage 4 (severe); E78.5 Hyperlipidemia, unspecified; K21.9 Gastro-esophageal reflux disease without esophagitis; G47.33 Obstructive sleep apnea (adult) (pediatric); D68.51 Activated protein C resistance; M19.90 Unspecified osteoarthritis, unspecified site; F41.9 Anxiety disorder, unspecified; I25.10 Atherosclerotic heart disease of native coronary artery without angina pectoris; M25.562 Pain in left knee; D64.9 Anemia, unspecified; Z79.4 Long term (current) use of insulin; Z87.891 Personal history of nicotine dependence; Z79.899 Other long term (current) drug therapy; Z88.8 Allergy status to other drugs, medicaments and biological substances; Z88.6 Allergy status to analgesic agent; Z96.41 Presence of insulin pump (external) (internal); Z86.718 Personal history of other venous thrombosis and embolism; Z98.49 Cataract extraction status, unspecified eye; Z98.890 Other specified postprocedural states; Z90.710 Acquired absence of both cervix and uterus; Z90.89 Acquired absence of other organs

== ENCOUNTER → 2017-07-02 | Outpatient (CLI) | payer MEDICARE ==
--- NOTE | 2017-07-02 12:48 | DIAGNOSTIC IMAGING REPORT ---
L LOWER EXT JOINT WITHOUT CLINICAL HISTORY: LEFT KNEE PAIN pain TECHNIQUE: Multi axial MRI acquisition COMPARISON STUDY: None FINDINGS: Very limited study due to considerable patient motion. This study in general is grossly diagnostic. There is moderate soft tissue edematous change about the entire knee. Signal characteristics of the femur are unremarkable. There is evidence for edematous change involving the medial and mid tibial plateau with evidence for a nondisplaced transverse fracture of the mid medial tibial plateau. This is best seen on the sagittal proton density and T2 images. There is considerable bone marrow edematous change about this fracture. It is considered nondisplaced. Evaluation of the menisci demonstrates the lateral meniscus to be unremarkable. Medial meniscus demonstrates appears to demonstrate a crush injury and shows loss of meniscal substance of the posterior horn. Medial and lateral collateral ligaments are considered intact. The patellofemoral joint appears to be generally unremarkable. The articular services intact. Medial lateral patellar retinaculum are unremarkable. Anterior and posterior cruciate ligaments are intact. IMPRESSION: 1. Nondisplaced horizontal fracture proximal aspect medial tibia. 2. Considerable surrounding soft tissue and bone marrow edematous change. 3. Compression type injury of the mid to posterior horn medial meniscus with loss of meniscal substance. 4. Small joint effusion. 5. All remaining ligamentous and tendinous structures are intact. The above report was generated using voice recognition software. It may contain grammatical, syntax or spelling errors. Electronically signed by: Tristan Hutchinson M.D. 07/02/2017 12:46 PM Dictated Date/Time: 07/02/2017 12:36 PM
--- NOTE | 2017-07-14 12:19 | CODING QUERY NO DIAGNOSIS ---
1945 TREATMENT RENDERED WITHOUT A DIAGNOSIS To promote full compliance with coding requirements relating to patient care, physician participation is requested in all cases of warehouse analyst uncertainty. Please assist us with providing a diagnosis/symptom for the test(s) below: A diagnosis/symptom was not documented on your Order. A valid diagnosis/symptom is required to bill all insurances. Please remember that we are unable to code a diagnosis of rule out, probable, possible, questionable, or suspected. Tests that require a diagnosis: Dos 07/02/17 MRI of Lower Extremity Joint Please review the MRI and verify -Traumatic fracture -Pathologic fracture -Healed or old fracture -Other please specify Provider Signature: Date: Thank you Arabella Ramirezeliceo [employer] Once completed, please kindly fax back to [phone] For questions please call [phone]
== END | disposition home or self-care (01) ==
LOC: C.MRI 11:09
PROVIDERS: ATTEND Physical Medicine & Rehabilitation Sports Medicine
DX: M25.562 Pain in left knee (principal)

== ENCOUNTER → 2017-07-07 | Outpatient (CLI) | payer MEDICARE ==
[2017-07-07 10:37] LABS: HEMATOCRIT 32.4 % (37-47)
[2017-07-07 10:57] LABS: BLOOD UREA NITROGEN 28 mg/dl (7-18); CALCIUM 10.2 mg/dl (8.5-10.1); CARBON DIOXIDE 29 mmol/L (21-32); CREATININE 2.16 mg/dl (0.60-1.20); GLUCOSE 141 mg/dl (70-99); PHOSPHORUS 2.9 mg/dl (2.5-4.9); POTASSIUM 4.4 mmol/L (3.5-5.1); SODIUM 138 mmol/L (136-145)
[2017-07-07 11:17] LABS: HEMOGLOBIN A1C 9.2 % (4.5-5.6)
== END | disposition home or self-care (01) ==
LOC: C.LAB1850 09:37
PROVIDERS: ATTEND Internal Medicine Endocrinology, Diabetes & Metabolism
DX: D63.8 Anemia in other chronic diseases classified elsewhere (principal); N18.4 Chronic kidney disease, stage 4 (severe); E03.9 Hypothyroidism, unspecified; E06.3 Autoimmune thyroiditis; E10.65 Type 1 diabetes mellitus with hyperglycemia; E10.8 Type 1 diabetes mellitus with unspecified complications

== ENCOUNTER → 2017-07-08 | Outpatient (CLI) | payer MEDICARE | END | disposition home or self-care (01) | LOC: C.LAB1850 10:17 | PROVIDERS: ATTEND Physical Medicine & Rehabilitation Sports Medicine | DX: M25.562 Pain in left knee (principal); S83.242A Other tear of medial meniscus, current injury, left knee, initial encounter; X58.XXXA Exposure to other specified factors, initial encounter; M85.80 Other specified disorders of bone density and structure, unspecified site ==

== ENCOUNTER → 2017-07-08 | Outpatient (CLI) | payer MEDICARE | END | disposition home or self-care (01) | LOC: C.RDSM 08:50 | PROVIDERS: ATTEND Physical Medicine & Rehabilitation Sports Medicine | DX: M25.552 Pain in left hip (principal); S63.242A Subluxation of distal interphalangeal joint of right middle finger, initial encounter; X58.XXXA Exposure to other specified factors, initial encounter ==

== ENCOUNTER → 2017-07-23 | Outpatient (CLI) | payer MEDICARE | END | disposition home or self-care (01) | LOC: C.RDSM 15:04 | PROVIDERS: ATTEND Physical Medicine & Rehabilitation Sports Medicine | DX: M25.562 Pain in left knee (principal) ==

== ENCOUNTER → 2017-10-13 | Outpatient (CLI) | payer MEDICARE ==
[~2017-10-13] MED LIST changes: -DMD20 PO; +TORS20TA3 PO
[2017-10-13 18:03] LABS: ALBUMIN 3.1 gm/dl (3.4-5.0); CALCIUM 10.3 mg/dl (8.5-10.1)
== END | disposition home or self-care (01) ==
LOC: C.LAB1850 16:24
PROVIDERS: ATTEND Internal Medicine Endocrinology, Diabetes & Metabolism
DX: E21.3 Hyperparathyroidism, unspecified (principal)

== ENCOUNTER → 2017-10-27 | Outpatient (CLI) | payer MEDICARE | END | disposition home or self-care (01) | LOC: C.LAB1850 14:52 | PROVIDERS: ATTEND Internal Medicine Endocrinology, Diabetes & Metabolism | DX: E21.3 Hyperparathyroidism, unspecified (principal) ==

== ENCOUNTER → 2017-10-30 | Outpatient (CLI) | payer MEDICARE ==
--- NOTE | 2017-10-30 19:19 | DIAGNOSTIC IMAGING REPORT ---
MRI OF THE BRAIN WITHOUT CONTRAST CLINICAL HISTORY: G93.9 right frontal lobe lesion. Follow-up study. COMPARISON STUDY: April 2017 FINDINGS: Sagittal T1, axial diffusion, proton density and T2 weighted axial, coronal FLAIR, and axial T1-weighted images were acquired. There is a stable 15 mm right frontal lobe lesion which demonstrates hemosiderin consistent with an area of prior hemorrhage. No new hemorrhagic foci are visualized. Axial diffusion-weighted images reveal no evidence of acute or subacute infarction. There is no evidence of ventricular dilatation. Proton density T2-weighted and FLAIR images reveal moderate foci of increased T2 signal within the white matter, likely on a small vessel basis. There are also foci of increased T2 signal within the sancho and basal ganglia. There are no abnormal flow voids. IMPRESSION: 1. No evidence of acute or subacute infarct 2. Stable 15 mm right frontal lobe lesion. This again demonstrates hemosiderin and is consistent with area of prior hemorrhage. This may represent a cavernoma or other lesion which has previously hemorrhaged 3. Moderate foci of increased T2 signal within the white matter, likely on a small vessel basis. Electronically signed by: Mariusz Love M.D. 10/30/2017 7:17 PM Dictated Date/Time: 10/30/2017 7:14 PM
== END | disposition home or self-care (01) ==
LOC: C.MRI 18:32
PROVIDERS: ATTEND Neuromusculoskeletal Medicine & OMM
DX: G93.9 Disorder of brain, unspecified (principal)